=== PATIENT | male | born 1965 | race Caucasian/White ===

== ENCOUNTER 2025-02-08 12:36 | Inpatient (IN) | payer BC, SELFPAY ==
[2025-02-08] VITALS (36 sets, daily range): BP systolic 57–134; BP diastolic 37–85; BMI 30.4; BMI 30.3
[2025-02-08] MEDS: NSS 1000 IV ×4 (10:18→22:26)
--- NOTE | 2025-02-08 10:21 | EDRN ---
Critical care note: setting up for cardioversion. Pt has been on handsfree since arrival. Hypotensive, clammy, short of breath .
--- NOTE | 2025-02-08 10:26 | EDRN ---
Dr Newman: 1 mg versed. Synced cardioversion 200J cardioverted. Sinus sarah 55. ECG.
[2025-02-08 10:46] LABS: % Basophils 1.6 % (0-2); % Eosinophils 1.1 % (0-6); % Immature Granulocytes 0.3 % (0-0.5); % Lymphocytes 25.4 % (20.5-51.1); % Monocytes 7.6 % (1.7-9.3); Absolute Basophils 0.1 10^3/uL (0-0.2); Absolute Eosinophils 0.1 10^3/uL (0-0.7); Absolute Lymphocytes 1.9 10^3/uL (1.2-3.4); Absolute Monocytes 0.6 10^3/uL (0.1-0.6); Absolute Neutrophils 4.8 10^3/uL (1.4-6.5); Hemoglobin 13.2 g/dL (13.0-18.0); Mean Corp Hgb Conc. 34.7 g/dL (33.0-37.0); Mean Corpuscular Hgb 29.5 pg (27.0-31.0); Mean Corpuscular Volume 84.8 fL (80.0-94.0); Nucleated Red Blood Cells % 0 % (-); Platelet Count 188 10^3/uL (130-400); Red Blood Cell Count 4.48 10^6/uL (4.70-6.10); Red Cell Dist. Width 12.2 % (11.5-14.5); White Blood Cell Count 7.4 10^3/uL (4.8-10.8)
[2025-02-08 10:56] LABS: INR 1.22; PT 15.7 Sec (11.4-14.6)
[2025-02-08 10:57] LABS: APTT 36.1 Sec (23.4-35.0)
[2025-02-08] MEDS: LEVOPHED 250 IV (11:11)
[2025-02-08 11:17] LABS: ALT (SGPT) 40 U/L (0-50); AST (SGOT) 27 U/L (17-59); Albumin 3.5 g/dl (3.5-5.0); Alkaline Phosphatase 41 U/L (38-126); Blood Urea Nitrogen 20 mg/dl (9-20); Calcium 8.2 mg/dl (8.4-10.2); Carbon Dioxide 22 mmol/L (22-30); Chloride 111 mmol/L (98-107); Estimated Creatinine Clearance 97 ml/min; Glucose 150 mg/dl (70-99); Potassium 4.7 mmol/L (3.5-5.1); Sodium 138 mmol/L (135-145); Total Bilirubin 1.2 mg/dl (0.2-1.3); Total Protein 5.8 g/dl (6.3-8.2); eGFR > 60.00
--- NOTE | 2025-02-08 11:19 | ED.GENMED ---
History of Present Illness
General
Chief Complaint: Cardiac Symptoms
Source: patient and ambulance crew
Exam Limitations: none
Time Seen by Provider: 02/08/25 10:44
Nursing documentation reviewed up to this point in time: agreed with
History of Present Illness
History of Present Illness:
Patient diagnosed in October 2024 with new onset atrial fibrillation, currently on Eliquis, presents to ED secondary to persistent dizziness, chest pressure, shortness of breath, and blurred vision, upon waking up this morning around 6:30 AM. After
initial set of symptoms, patient states that his symptoms resolved completely. However, when he went to restroom shortly after to brush his teeth, his symptoms came back, but more severe. Secondary symptoms, including near syncope with
diaphoresis, 911 was dispatched to patient's home, where he was found to be in severe distress with hypotension and ongoing chest pain. Patient was given aspirin and IV fluids en route to the hospital. Upon arrival, patient was found to be
hypotensive and tachycardic with aforementioned symptoms. Patient denies recent illness. Patient does admit to having had couple alcoholic drinks last night. Denies recent travel. Denies recent change in medications or diet. When he was
admitted at [facility] in October, patient states that his rhythm converted on his own with medications. Since then, he has received outpatient stress test, which was normal. There is family history of heart disease. Patient does not smoke.
Past History
Past History
ED Past Medical History: None
ED Past Surgical History: None
Social History
Tobacco: Non-smoker
Alcohol: None
Drug: None
Personal:
Living: with family
Review of Systems
Review of Systems
Allergies reviewed?: Yes
All Other Systems: ROS reviewed and negative except as documented in HPI and ROS
Constitutional: Reports no symptoms
Respiratory: Reports trouble breathing
Cardiac: Reports chest pain
ABD/GI: Reports nausea; Denies abdominal pain or vomiting
Musculoskeletal: Reports no symptoms
Skin: Reports no symptoms
Neurological: Reports dizzy
Phy Exam
Physical Exam
Physical Exam:
Physical Exam
General: moderate distress, acutely ill. afebrile. tachycardic
Head: nc/at. eomi
Neck: supple. no meningeal signs
Heart: tachycardic, no murmur
Lungs: no acute respiratory distress. clear bilaterally
Abdomen: normal bowel sounds. not tender.
Neuro: alert and oriented x 3. no focal neurological deficits
Skin: no rash
Psychiatric: well kept. interactive and cooperative
Extremities: no edema. no calf tenderness
Course
Orders/Labs/Results
Orders:
Orders
02/08/25 Lunch
Cholesterol Lowering
At Your Request: Full Participation
Cholesterol Lowering: Sodium, 2 Gram
02/08/25 10:10
ECG [Electrocardiogram (*1)] Urgent
Reason for Study: Chest Pain
02/08/25 10:11
EKG- Treatment ONCE
02/08/25 10:19
Propofol [Diprivan] 20 ml .ROUTE .STK-MED
02/08/25 10:20
Diltiazem 125 mg/125 ml Nss [Cardizem] 125 mg in 125 ml .ROUTE .STK-MED
Diltiazem HCl [Cardizem] 25 mg .ROUTE .STK-MED ONE
Midazolam HCl [Versed] 2 mg .ROUTE .STK-MED ONE
02/08/25 10:21
Fentanyl Citrate/Pf [Sublimaze] 100 mcg .ROUTE .STK-MED ONE
02/08/25 10:28
ECG [Electrocardiogram (*1)] Urgent
Reason for Study: Abnormal EKG
EKG- Treatment ONCE
02/08/25 10:30
0.9% Sodium Chloride 1000 ml [Nss] 1,000 ml IV 2,000 mls/hr
02/08/25 10:40
Complete Blood Count/With Diff Urgent
Comprehensive Metabolic Panel Urgent
NT-proBNP Urgent
Comment: ADD ON
PT/INR [Prothrombin Time] Urgent
PTT Urgent
Troponin I Urgent
02/08/25 10:55
CR Chest Portable - 1 View Urgent
Comment:
Reason For Exam: chest pain
Reason Study Needs to be Portable: Patient Unstable
02/08/25 11:00
DOPamine 400 MG/D5W 250 ML [DOPamine 400 MG] 400 mg in 250 ml IV PER PROTOCOL
Initial dose in mcg/kg/min, then titrate:: 5
Titrate to keep:: SBP > 90 mmHg
Titrate by mcg/kg/min:: 1-2 mcg/kg/min
Frequency of titrations (minutes):: 15
Maximum dose in ICU in mcg/kg/min:: 20
Maximum dose in IMU in mcg/kg/min:: 10
Begin to taper infusion when:: Remained at goal for 4hrs
Taper by mcg/kg/min:: 1-2 mcg/kg/min
Frequency of taper (minutes) if patient maintains goal:: 30
Taper to off?: Yes
If infusion off & no longer maintaining goal:: Contact Provider
02/08/25 11:06
NORepinephrine 4 MG/250 ML [Levophed] 4 mg in 250 ml .ROUTE .STK-MED
02/08/25 11:07
0.9% Sodium Chloride 1000 ml [Nss] 1,000 ml IV BOLUS
02/08/25 11:15
NORepinephrine 4 MG/250 ML [Levophed] 4 mg in 250 ml IV PER PROTOCOL
Initial dose in mcg/min, then titrate:: 5
Titrate to keep:: SBP > 90 mmHg
Titrate by mcg/min:: 1-2 mcg/min
Frequency of titrations (minutes):: 5
Maximum dose in ICU in mcg/min:: 30
Maximum dose in IMU in mcg/min:: 8
Maximum dose in IVU in mcg/min:: 4
Begin to taper infusion when:: Remained at goal for 4hrs
Taper by mcg/min:: 1-2 mcg/min
Frequency of taper (minutes) if patient maintains goal:: 30
Taper to off?: Yes
If infusion off & no longer maintaining goal:: Contact Provider
02/08/25 11:17
Add On- LAB Urgent
Tests Added?: ProBNP, magnesium
02/08/25 11:33
COVID-19 Antigen Urgent
Source: Nasal Swab
Lactic Acid Q4H
Comment: CANCEL 2nd LACTIC ACID IF 1st LACTIC ACID IS LESS THAN 2
Blood Culture Q30M
EVGENY Source: Blood/Venous
Specimen Description:
Blood Culture Q30M
EVGENY Source: Blood/Venous
Specimen Description:
Influenza A+B Rapid Molecular Urgent
EVGENY Source: Nasal Swab
Specimen Description:
02/08/25 12:04
Code Status As Directed
Resuscitation Status: Full Code
Docusate W/Senna [Senokot-S] 1 tablet PO BIDPRN PRN
Polyethylene Glycol Powder [Miralax] 17 grams PO DAILYPRN PRN
Activity As Directed
Activity Level: As Tolerated
Vital Signs As Directed
Frequency: Per unit guidelines
02/08/25 12:06
Admit/Transfer Patient As Directed
Co-Sign Provider:
Level of Care: Inpatient admission
Assign to:: ICU
Physician / Group: Hospitialist: Aristides
Diagnosis: A-fib with RVR, cardiogenic shock
Reason for Hospitalization: A-fib with RVR, cardiogenic shock
Expected length of stay greater than two midnights?: Yes
ELOS- Estimated Length of Stay in days: 2
I certify the patient meets the requirements for IP care: Yes
PRN Pain Medication Management As Directed
May give lesser potent ordered pain med per pt: Yes
preference::
Protocol:: Medication orders for pain may be administered in a
manner that supports deferring to patient preference
when the pt is:
- Requesting an ordered lesser potent pain medication.
Least to most potent pain medications are defined
as: acetaminophen < NSAID < tramadol < opioids
(morphine, oxycodone, hydromorphone).
- Requesting a lesser dose of the same medication IF
ORDERED.
- Requesting a less intrusive route of administration
if both routes are prescribed by the provider (PO <
IV).
02/08/25 12:08
Echo 2D MMode Color/Doppler Stat
Reason for Study: hypotension
02/08/25 12:09
CARDIOLOGY CONSULT Routine
Consulting Provider: Elliot Romero
Was physician already notified: Yes
Reason for consult: afib RVR w hypotension
02/08/25 12:10
Online Publisher Consult Routine
Consulting Provider: Rhonda Powell
Was physician already notified: Yes
Reason for consult: requiring vasopressors after electrical cardioversion
02/08/25 12:15
0.9% Sodium Chloride 1000 ml [Nss] 1,000 ml IV 100 mls/hr
02/08/25 13:32
Alprazolam [Xanax] 1 mg PO BIDPRN PRN anxiety
02/08/25 18:00
Rosuvastatin Calcium [Crestor] 5 mg PO QPM
02/08/25 20:00
Apixaban [Eliquis] 5 mg PO BID
Metoprolol [Lopressor] 50 mg PO BID
02/09/25 06:00
Basic Metabolic Panel IN AM
Complete Blood Count/With Diff IN AM
Magnesium IN AM
Phosphorus IN AM
Abnormal Lab Results
02/08/25
10:40
RBC 4.48 L 10^6/uL
(4.70-6.10)
Hct 38.0 L %
(39.0-52.0)
PT 15.7 H Sec
(11.4-14.6)
APTT 36.1 H Sec
(23.4-35.0)
Chloride 111 H mmol/L
(98-107)
Glucose 150 H mg/dl
(70-99)
Calcium 8.2 L mg/dl
(8.4-10.2)
Total Protein 5.8 L g/dl
(6.3-8.2)
02/08/25 10:40
02/08/25 10:40
Vital Signs
Initial and Last Documented VS:
Initial Vital Signs
Temp Pulse Resp BP Pulse Ox
96.8 F L 163 20 57/37 90
02/08/25 10:10 02/08/25 10:10 02/08/25 10:10 02/08/25 10:10 02/08/25 10:10
Last Documented Vital Signs
Temp Pulse Resp BP Pulse Ox
98.2 F 78 16 131/71 100
02/08/25 15:23 02/08/25 17:30 02/08/25 17:30 02/08/25 17:19 02/08/25 17:38
MDM/Problems Addressed
MDM/Problems Addressed:
Patient evaluated immediately upon arrival. Initial EKG confirms nonspecific tachycardia, narrow complex. Patient started on additional IV fluids to support blood pressure. Unfortunately, after receiving approximately 800 mL normal saline bolus,
patient remains symptomatic with worsening hypotension. As such, after verbal discussion and consent, decision made to perform emergent cardioversion. Patient given 1 mg Versed prior to cardioversion with 200 J, with successful conversion of
initial tachycardia. Repeat EKG reveals sinus bradycardia, without any acute ST changes. In addition, patient states that all of his aforementioned presenting symptoms have resolved.
Blood pressure remains low and decreasing after initial improvement. As such, additional IV fluid ordered along with pressor support via Levophed infusion.
Discussed with on-call cardiology, Dr. Romero, who agrees with treatment plan. 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 Does recommend further workup including potential infectious etiology, due to persistent hypotension.
Patient will be admitted to ICU tonight for further evaluation and treatment.
Critical care statement: A total of 40 minutes of critical care time was provided for this patient. This includes management of unstable vital signs, evaluation of the patient at bedside, reviewing the patient's pertinent medical records, discussion
with consultants, review of old EKGs and review of pertinent medical records. This time with separate from time utilized to perform the aforementioned documented procedures
*Pulse Oximetry
SaO2: 100
Nasal Cannula flow liters per minute: 2
Oxygen Mode of Delivery: Room air
Patient hypoxic: no
*Critical Care Note
Total Time (30-74mins, 75-104mins- exclusive of procedures): 40 min
ED Attending Note
-
Portions of this chart may have been created with voice recognition software.� Occasional wrong word or��sound alike� substitutions may have occurred due to the inherent limitations of voice recognition software.
Discharge Plan
Departure
Patient Disposition: Admit
Date of Disposition: 02/08/25
Time of Disposition: 11:26
Admit to: ICU
Presentation/result/management discussed w/ accepting MD/DO: Hospitalist
Discharge Problem:
Chest pain, Tachycardia
Interventions
Interventions:
*Risk Screen - Suicide Last Done: 02/08/25 15:16
*General Assessment Last Done: 02/08/25 10:46
*Neglect/Abuse Screening Last Done: 02/08/25 10:49
*ED- Fall Risk Assessment Last Done: 02/08/25 12:13
*ED COVID-19 Vaccine History Last Done: 02/08/25 12:13
*Nursing Disposition Last Done: 02/08/25 13:49
ED- Pulmonary Assessment Last Done: 02/08/25 10:40
ED- Cardiac Assessment Last Done: 02/08/25 10:40
Discharge Date and Time
Discharge Date/Time: 02/08/25 13:50
[2025-02-08 11:28] LABS: Troponin I < 0.012 ng/ml
[2025-02-08] MEDS: NSS IV (11:28)
[2025-02-08 11:42] LABS: NT-proBNP 811 pg/ml
--- NOTE | 2025-02-08 11:59 | CM ---
Patient seen at bedside with patient in ED. Patient lives with in 2 story home. Patient PCP is Dr. Raphael and he uses the [facility] on [address] in [place]. Patient was independent prior to admission, and had no DME per spouse. CM will
continue to follow for discharge planning needs.
Plan; home with no needs; watch for medical treatment plan
[2025-02-08 12:00] LABS: Lactic Acid 1.2 mmol/L (0.7-2.0)
[2025-02-08 12:12] LABS: COVID-19 Antigen Negative (Negative)
--- NOTE | 2025-02-08 12:12 | HPS.HSE ---
Family Physician
-
Family Physician: Rickie Alicia
Chief Complaint
-
Chest pain, shortness of breath
History of Present Illness
Mr. Tuttle is a 60-year-old male with a medical history of recent A-fib diagnosis (October 2024, started on Eliquis and Lopressor) who presented from home with chest pain dizziness and shortness of breath. His symptoms were present when he first
woke up around 6:30 AM but resolved spontaneously. However his symptoms then returned more severely when he was ambulating to the bathroom. He was brought to the emergency department by EMS who reportedly found him at home in severe distress with
hypotension and chest pain. He was given aspirin and IV fluids on the way to the hospital. He remained tachycardic in the ED and was subsequently electrically cardioverted with return to normal sinus rhythm and controlled heart rate. His
hypotension has persisted however and so he was started on vasopressors. His presenting symptoms have since resolved after cardioversion. Patient reports a busy and slightly stressful weekend which may have been the trigger for his presenting
symptoms. This weekend the patient and his hosted a patient liaison honoring a family member. Last evening he reports having 2 alcoholic drinks while watching the [employer] lose to the [employer]. He has been adherent with his medication
regimen and denies recent illness or sick contacts. He does not smoke or use drugs. He has been admitted for further evaluation management.
Medical History
Past Medical History
Past Medical History: Reports Arrhythmia (A-fib)
Past Surgical History: Reports None
Social History
Tobacco: Non-smoker
Alcohol: Occasional
Drug: None
Personal:
Living: With Family
Family History
Family History: Not pertinent
Allergies / Home Medications
Allergies reflects when Allergies were last updated in [facility].
Home Medications with original date entered in [facility]
Allergy/Medication List:
Allergies
Allergy/AdvReac Type Severity Reaction Status Date / Time
NKA - No Known Allergies Allergy Unknown Uncoded 10/23/11 20:20
Home Medications
alprazolam 1 mg tablet (Xanax) 1 mg PO BIDPRN PRN anxiety 02/08/25
apixaban 5 mg tablet (Eliquis) 5 mg PO BID 02/08/25
metoprolol tartrate 50 mg tablet 50 mg PO BID 02/08/25
ramipril 10 mg capsule 10 mg PO DAILY 02/08/25
rosuvastatin 5 mg tablet (Crestor) 5 mg PO QPM 02/08/25
Review of Systems
-
History Source: Patient
A 12 point ROS was completed and negative except as noted: Yes
Physical Exam
Vital Signs
Vital Signs
Temp Pulse Resp BP Pulse Ox
96.8 F L 54 15 103/72 99
02/08/25 10:10 02/08/25 12:00 02/08/25 12:00 02/08/25 11:50 02/08/25 12:00
Physical Exam
General: No Apparent Distress
Laboratory Results
-
02/08/25 10:40
02/08/25 10:40
Laboratory Results
PT 15.7 Sec (11.4-14.6) H 02/08/25 10:40
INR 1.22 02/08/25 10:40
APTT 36.1 Sec (23.4-35.0) H 02/08/25 10:40
Lactic Acid 1.2 mmol/L (0.7-2.0) 02/08/25 11:33
Total Bilirubin 1.2 mg/dl (0.2-1.3) 02/08/25 10:40
AST 27 U/L (17-59) 02/08/25 10:40
ALT 40 U/L (0-50) 02/08/25 10:40
Alkaline Phosphatase 41 U/L (38-126) 02/08/25 10:40
Troponin I < 0.012 ng/ml 02/08/25 10:40
Impression/Plan
-
General: No Apparent Distress, Comfortable and Conversant
HEENT: NormoCephalic, Moist mucous membranes, Atraumatic
Respiratory: Clear and Non Labored Respirations
Cardiac: S1/S2 and Regular Rhythm; No Rub or Gallop
GI: Soft, Non Tender, Non Distended and Normal Bowel Sounds
Musculoskeletal: No Edema, no deformity
Skin: Warm and dry
: NO Yoder
Neuro: Awake, Alert, Nonfocal/grossly intact
Psych: Calm and Intact Judgment/Insight
Mr. Tuttle is a 60-year-old male with a medical history of recent A-fib diagnosis (October 2024, started on Eliquis and Lopressor) who presented from home with chest pain dizziness and shortness of breath. His symptoms were present when he first
woke up around 6:30 AM but resolved spontaneously. However his symptoms then returned more severely when he was ambulating to the bathroom. He was brought to the emergency department by EMS who reportedly found him at home in severe distress with
hypotension and chest pain. He was given aspirin and IV fluids on the way to the hospital. He remained tachycardic in the ED and was subsequently electrically cardioverted with return to normal sinus rhythm and controlled heart rate. His
hypotension has persisted however and so he was started on vasopressors. His presenting symptoms have since resolved after cardioversion. Patient reports a busy and slightly stressful weekend which may have been the trigger for his presenting
symptoms. This weekend the patient and his hosted a patient liaison honoring a family member. Last evening he reports having 2 alcoholic drinks while watching the [employer] [place] to [employer]. He has been adherent with his medication
regimen and denies recent illness or sick contacts. He does not smoke or use drugs. Recent ischemic workup following A-fib diagnosis was reportedly negative. He has been admitted for further evaluation management.
A-fib with RVR:
- Now in normal sinus rhythm with controlled rate following electrical cardioversion in the ED
- Continue scheduled beta-monica with home metoprolol tartrate 50 mg p.o. twice daily for ongoing rate control
- Check echocardiogram
- Maintain telemetry monitoring
- Anticoagulation with Eliquis
- Appreciate further guidance from cardiology
- No metabolic abnormalities on labs to explain this episode
Cardiogenic shock:
- Presenting hypotension in the setting of A-fib with RVR was likely rate related
- Now with persistent hypotension despite controlled rate, however may be due to residual effect of sedation given prior to electrical cardioversion
- Continue vasopressors for now and titrate as able
- Monitor in the ICU
- Holding home ramipril for now
DVT prophylaxis: Eliquis
CODE STATUS: Full code
Total time spent on today's encounter was 60 minutes
--- NOTE | 2025-02-08 13:38 | CON.CAR ---
Consultation
Consultation Request
Date/Time Consultation Requested: February 08, 2025 11 AM
Date/Time Consultation Performed: February 08, 2025 1 PM
Requesting Provider: Emergency room
Performing Provider: Elliot Romero
Reason for Consultation: SVT hypotension
Medical History
-
Chief Complaint: Dizziness
History of Present Illness:
60-year-old male with past medical history of A-fib on Eliquis and metoprolol who comes in with chest pain dizziness and lightheadedness. He tells me his symptoms started approximately when he woke up. They resolved spontaneously however, they
returned and were more severe. He also had some shortness of breath. He is accompanied by his who provides some interval history. She tells me that he was feeling very off and did not look well. She then called EMS. When EMS arrived he was
found to be hypotensive and having chest pain. Additionally, he had SVT with heart rates approximately 160. When he arrived in the emergency room he was hypotensive and then cardioverted. He has received significant amount of IV fluid remained
hypotensive and was started on Levophed. His symptoms have resolved when his hypotension resolved. He denies any fevers or chills.
Past Medical History
Past Medical History: Other (A-fib hypertension dyslipidemia)
Past Surgical History: None
Social History
Tobacco: Non-Smoker
Alcohol: Occasional
Drug: None
Personal:
Living: With Family
Family History
Family History: Reviewed & Not Pertinent
Allergies / Home Medications
Allergy/AdvReac Type Severity Reaction Status Date / Time
NKA - No Known Allergies Allergy Unknown Uncoded 10/23/11 20:20
�Medication �Instructions �Recorded �Confirmed �Type
alprazolam 1 mg tablet (Xanax) 1 mg PO BIDPRN PRN anxiety 02/08/25 02/08/25 History
apixaban 5 mg tablet (Eliquis) 5 mg PO BID 02/08/25 02/08/25 History
metoprolol tartrate 50 mg tablet 50 mg PO BID 02/08/25 02/08/25 History
ramipril 10 mg capsule 10 mg PO DAILY 02/08/25 02/08/25 History
rosuvastatin 5 mg tablet (Crestor) 5 mg PO QPM 02/08/25 02/08/25 History
Review of Systems
-
All other systems: Negative unless noted
Physical Exam
Vital Signs
Temp Pulse Resp BP Pulse Ox
96.8 F L 54 15 108/71 100
02/08/25 10:10 02/08/25 13:00 02/08/25 13:00 02/08/25 13:00 02/08/25 13:00
Lab Results
02/08/25 10:40
02/08/25 10:40
Troponin I < 0.012 ng/ml 02/08/25 10:40
[id number]-M-[id number] Pept 811 pg/ml 02/08/25 10:40
Physical Exam
General: Well Developed, Well Nourished and No Apparent Distress
HEENT: Normocephalic and Anicteric
Respiratory: Clear and Non Labored Respirations
Cardiac: S1/S2 and Regular Rhythm
GI: Soft
Musculoskeletal: No Clubbing, No Cyanosis and No Edema
Skin: Warm
Neuro: AO x 3
Psych: Calm
Impression / Plan
-
A/P: 60-year-old male with past medical history of hypertension, hyperlipidemia, recent diagnosis of A-fib on Eliquis who is here for SVT and hypotension. It is unclear to me why he was persistently hypotensive even after cardioversion. He did
take his blood pressure medicines. I am hopeful that this is transient and they will be able to titrate off the inotropes this afternoon. Otherwise, it is likely that his chest pain, shortness of breath, and dizziness were caused by profound
hypotension as well as tachycardia.
SVT/A-fib
- Continue Eliza will discuss with EP about possible ablation
- Continue metoprolol when off inotropes
Chest pain
- Troponin likely to be elevated given hypotension and cardioversion
- Reportedly normal stress test just a couple months ago
- Will discuss with interventional cardiology about possible cath in future
Hypotension
- Currently on inotropes unclear as cause echocardiogram shows normal heart function
- Rule out infection
Echocardiogram February 08, 2025: CONCLUSIONS
Normal biventricular size and systolic function without regional wall motion
abnormality.
LVEF is 60-65% by visual estimation. Normal diastolic function.
Normal right ventricular size and function.
No significant valvular disease.
Estimated pulmonary artery pressure of 27 mmHg, assuming a right atrial
pressure of 3 mmHg.
Sinuses of Valsalva (4.2 cm) dilatation.
No prior study available for comparison.
Data Reviewed
-
EKG: Tracing Personally Visualized and interpreted (svt sr)
Medical Tests (Nuc Med, Echo etc): Image Personally Visualized and interpreted
Labs: Labs Reviewed by me
--- NOTE | 2025-02-08 13:53 | CM ---
Patient seen at bedside in 2 south. CM spoke with Kelly from [facility], All documentation in place, awaiting confirmation of acceptance by HD center at [place]. CM to start auth pending receipt of the NPI numbers for facility and accepting
physician. CM will call to patient daughter to update plan. CM will continue to follow for discharge planning needs.
Plan; SNF;
[2025-02-08 13:56] LABS: Glucose - Point of Care 105 mg/dl (70-99)
--- NOTE | 2025-02-08 14:08 | CON.INTV ---
Consultation
Consultation Request
Date/Time Consultation Requested: 02/08/2025
Date/Time Consultation Performed: 02/08/2025
Requesting Provider: Matty Irving
Performing Provider: Rhonda Powell
Reason for Consultation: Hypotension
Medical History
-
Chief Complaint: Dizziness, palpitations
History of Present Illness:
Patient is a very pleasant 60-year-old gentleman with known history of A-fib on chronic anticoagulation with Eliquis and rate controlled with metoprolol who presented to the emergency room with dizziness palpitations and some chest discomfort.
Patient's reports that at home when she checked his blood pressure his heart rate was noted to be too high to monitor and blood pressure was in systolic of 80s. Patient subsequently was brought to the emergency room where he was noted to be
tachycardiac and hemodynamically unstable which eventually prompted an electrical cardioversion following which he flipped into normal sinus rhythm with rather sinus bradycardia. Hypotension tend to persist after cardioversion and patient was given
2 L of fluids and also started on pressors. In view of hypotension and pressor need, patient was transferred to ICU and environmental analyst consultation was requested for further input.
During my evaluation, patient was chest pain-free, otherwise asymptomatic, no cough, no chest pressure, no pleuritic discomfort. He was in normal sinus rhythm with mild sinus bradycardia around heart rate of 54-56. Blood pressure was in 120s and
patient was being weaned off Levophed.
Past Medical History
Past Medical History: Reports Arrhythmia (A-fib)
Past Surgical History: Reports None
Social History
Tobacco: Non-smoker
Alcohol: Occasional
Drug: None
Personal:
Living: With Family
Family History
Family History: Not pertinent
Allergies / Home Medications
Allergies / Home Medications
Allergies
Allergy/AdvReac Type Severity Reaction Status Date / Time
NKA - No Known Allergies Allergy Unknown Uncoded 10/23/11 20:20
Home Medications
�Medication �Instructions �Recorded �Confirmed �Last Taken �Type
alprazolam 1 mg tablet (Xanax) 1 mg PO BIDPRN PRN anxiety 02/08/25 02/08/25 Unknown History
apixaban 5 mg tablet (Eliquis) 5 mg PO BID 02/08/25 02/08/25 02/08/25 History
metoprolol tartrate 50 mg tablet 50 mg PO BID 02/08/25 02/08/25 02/08/25 History
ramipril 10 mg capsule 10 mg PO DAILY 02/08/25 02/08/25 02/08/25 History
rosuvastatin 5 mg tablet (Crestor) 5 mg PO QPM 02/08/25 02/08/25 02/07/25 History
Review of Systems
-
Hematologic/Lymphatic: Other (All 14 systems reviewed and negative except as stated above in the history of present illness.)
Vitals / Labs / Diagnostic Testing
Vital Signs
Temp Pulse Resp BP Pulse Ox
96.8 F L 54 14 117/73 100
02/08/25 10:10 02/08/25 13:45 02/08/25 13:45 02/08/25 13:30 02/08/25 13:45
Lab Data
02/08/25 10:40
02/08/25 10:40
Laboratory Results
02/08/25
10:40
PT 15.7 H
INR 1.22
APTT 36.1 H
Microbiology
02/08/25 11:33 Nasal Swab Influenza Types A & B (YAEL) - Final
Negative for Influenza A & B, NAAT
Negative results must be combined with clinical observations
and patient history.
Nucleic Acid Amplification test (NAAT)performed on the
[employer] platform.
Diagnostic Testing:
Physical Exam
-
HEENT: Normocephalic
Cardiovascular: S1/S2
Respiratory: Clear and Non-Labored Respirations
GI: Soft and Non Distended
Neurology: Awake and Alert
Skin: Warm
General: Comfortable
Assessment
-
#1. Paroxysmal SVT/Atrial Fibrillation with RVR
- S/p emergent cardioversion in ED 02/08
- On Eliquis and resume Metoprolol once off Pressors
- Cardiology consult for possible ablation
- Post cardioversion, mild sinus bradycardia noted, currently heart rate in mid 50s. ? Underlying sick sinus syndrome
#2. Hypotension.
- Suspect related to RVR, sedation medications (Versed, Fentanyl), unclear if patient received Cardizem
- Pressors as needed to keep MAP > 65, wean as tolerated, currently off Levophed
- F/u blood cultures. ROS and CXR not suggestive if infectious etiology.
- Afebrile, normal WBC count, Normal Lactate 1.2, hold off antibiotics for now.
- ECHO reviewed, LVEF normal
- Resume metoprolol at a lower dose of 25 mg every 6 hours with withholding parameters
#3. Suspected sleep disordered breathing.
- High pretest probability of underlying sleep apnea
- Will arrange outpatient follow-up with pulmonary clinic for further evaluation
Discussed the plan with cardiology service
Critical Care time 65 mins -- The patient is admitted for acute critical illness for the treatment of vital organ failure and/or prevention of further life-threatening conditions. Total care includes time spent in review of history, physical exam,
medications, hemodynamic/ventilator parameters, laboratory data, imaging and discussion with house staff, pharmacy, respiratory therapy, bench worker hollow handle, and nursing.
Data:
CXR 01/2025:1. Mild to moderate cardiomegaly.
2. Mild interstitial cardiogenic pulmonary edema.
ECHO 01/2025: Normal biventricular size and systolic function without regional wall motion
abnormality.
LVEF is 60-65% by visual estimation. Normal diastolic function.
Normal right ventricular size and function.
No significant valvular disease.
Estimated pulmonary artery pressure of 27 mmHg, assuming a right atrial
pressure of 3 mmHg.
Sinuses of Valsalva (4.2 cm) dilatation.
No prior study available for comparison.
--- NOTE | 2025-02-08 15:28 | PTCARENOTE ---
Updated admission data. ICU orientation, follow up plan of cares, history and event review. Continue with follow up teaching. Continue updates with cardiology, manager personnel selection team now at bedside with patient and spouse. Continue ongoing assessment,
vital sign trends and overall evaluation. Critical care nursing in and out at bedside. IVF continue. Levophed off since arrival. CP free, denies sob or huang, patient remains sinus sarah to sinus rhythm at this assessment. Will follow up medications
with manager personnel selection and pharmacy.
[2025-02-08] MEDS: LOPRESSOR 25 MG PO (17:19)
[2025-02-08] MEDS: CRESTOR 5 MG PO (17:19)
--- NOTE | 2025-02-08 20:20 | PTCARENOTE ---
Assumed care of pt at 1900. Pt is A/O x4, pleasant and cooperative with care. No c/o pain. SB 50s on monitor, occasionally going into upper 40s for a couple of seconds (self-limiting), first degree AVB noted (NV 0.22). SpO2 98% on RA. Physical
assessment as documented in nursing shift assessment flowsheet. at bedside.
[2025-02-08] MEDS: ELIQUIS 5 MG PO (21:34)
[2025-02-08] MEDS: XANAX 1 MG PO (21:35)
[2025-02-08] MEDS: LOPRESSOR PO (22:30)
[2025-02-09] VITALS (17 sets, daily range): BP systolic 100–161; BP diastolic 61–90; BMI 30.4
--- NOTE | 2025-02-09 01:28 | PTCARENOTE ---
Midnight assessment unchanged. 2200 dose of Lopressor held due to HR being below ordered parameter, pt continues to be bradycardic, while asleep is sustaining in the 40s, BP/MAP are WNL.
[2025-02-09] MEDS: LOPRESSOR PO ×3 (03:52→16:39)
[2025-02-09 05:12] LABS: % Eosinophils 1.7 % (0-6); % Immature Granulocytes 0.2 % (0-0.5); % Lymphocytes 33.7 % (20.5-51.1); % Monocytes 8.3 % (1.7-9.3); % Neutrophils 55.1 % (42.2-75.2); Absolute Basophils 0.1 10^3/uL (0-0.2); Absolute Eosinophils 0.1 10^3/uL (0-0.7); Absolute Lymphocytes 2.1 10^3/uL (1.2-3.4); Absolute Monocytes 0.5 10^3/uL (0.1-0.6); Absolute Neutrophils 3.5 10^3/uL (1.4-6.5); Hematocrit 36.8 % (39.0-52.0); Hemoglobin 12.4 g/dL (13.0-18.0); Mean Corp Hgb Conc. 33.7 g/dL (33.0-37.0); Mean Platelet Volume 10.3 fL (7.4-10.4); Nucleated Red Blood Cells % 0 % (-); Platelet Count 155 10^3/uL (130-400); Red Blood Cell Count 4.28 10^6/uL (4.70-6.10); Red Cell Dist. Width 12.5 % (11.5-14.5); White Blood Cell Count 6.3 10^3/uL (4.8-10.8)
[2025-02-09 05:48] LABS: Blood Urea Nitrogen 11 mg/dl (9-20); Calcium 8.2 mg/dl (8.4-10.2); Carbon Dioxide 22 mmol/L (22-30); Chloride 116 mmol/L (98-107); Estimated Creatinine Clearance > 125 ml/min; Glucose 103 mg/dl (70-99); Phosphorus 3.2 mg/dl (2.5-4.5); Potassium 4.2 mmol/L (3.5-5.1); Sodium 142 mmol/L (135-145); eGFR > 60.00
--- NOTE | 2025-02-09 06:06 | PTCARENOTE ---
0400 assessment unchanged. Pt has been asleep most of the shift. 0400 Lopressor dose held due to bradycardia, still maintaining HR in 40s while asleep, 50s-60s while awake, asymptomatic and BP WNL.
[2025-02-09] MEDS: NSS 1000 IV (07:29)
[2025-02-09] MEDS: ELIQUIS 5 MG PO ×2 (07:30→20:11)
--- NOTE | 2025-02-09 07:43 | W.PN.INTV ---
Today's Communication / Plan
Recommendations
NOX study tonight to be performed on room air
Social work consulted to assist us getting CPAP upon discharge
Outpatient pulmonary/sleep office follow-up will be arranged
Continue beta-monica with holding parameters dose may benefit from long-acting formulation given his bradycardia (defer changes to cardiology)
May benefit from an EP study however should first start treatment for JAMES and possibly obtain a cardiac event monitor (i.e. Linq) after that to assess burden of AF before ablation considered
Patient is stable for downgrade out of ICU to IVU; Pulmonary service will continue to follow along.
Assessment
-
#1. Paroxysmal SVT/Atrial Fibrillation with RVR now in NSR s/p emergent DCCV in ER on 02/08
- Continue Eliquis and Metoprolol, holding for bradycardia
- Check TSH
- EP consulted for possible ablation
- Post cardioversion, mild sinus bradycardia noted, currently heart rate in mid upper 40s, low 50s. ?Underlying sick sinus syndrome
- He does carry a diagnosis of obstructive sleep apnea with regions HSAT performed through his cardiology office ([facility]) � per the , this showed mild JAMES however I will obtain medical records myself to review
- I suspect that his recurrent atrial fibrillation is due to uncontrolled moderate/severe JAMES and he would greatly benefit from starting CPAP with sleep given his loud snoring, excessive daytime sleepiness, and nonrestorative sleep.
- I will check an overnight oximetry this evening
- Social work consulted to help assist us getting CPAP upon discharge
#2. Hypotension - now resolved
- Suspect related to RVR, sedation medications (Versed, Fentanyl), unclear if patient received Cardizem
- Goal MAP>65
- BCx drawn 02/08/2025 has grown Staphylococcus epidermidis, likely a contaminant as other blood Cx bottles are all negative and he has normal WBC, is non-toxic appearing and afebrile
- CXR from 02/08/2025 not suggestive if infectious etiology.
- Afebrile, normal WBC count, Normal Lactate 1.2, hold off antibiotics for now.
- ECHO reviewed, LVEF normal with normal RV size/function and normal PASP at 27 mmHg
- Continue metoprolol with holding parameters given his bradycardia, may need to change to a long-acting formulation instead - defer to cardiology
#3. JAMES
- As stated above, he already has been tested positive for obstructive sleep apnea
- I will obtain medical records from his asphalt patcher to review his HSAT from November 2024
- NOX study tonight to be performed on room air
- Social work consulted to assist with us getting him CPAP upon discharge, has he would greatly benefit from CPAP usage with sleep given his recurrent A-fib
- Patient still has not seen a sleep medicine office for follow up - we will arrange outpatient follow up with us at [facility] for continued management
Discussed the plan with cardiology service and hospitalist.
Patient is stable for downgrade out of ICU to IVU; Pulmonary service will continue to follow along.
Data:
CXR 01/2025:1. Mild to moderate cardiomegaly.
2. Mild interstitial cardiogenic pulmonary edema.
ECHO 01/2025: Normal biventricular size and systolic function without regional wall motion
abnormality.
LVEF is 60-65% by visual estimation. Normal diastolic function.
Normal right ventricular size and function.
No significant valvular disease.
Estimated pulmonary artery pressure of 27 mmHg, assuming a right atrial
pressure of 3 mmHg.
Sinuses of Valsalva (4.2 cm) dilatation.
No prior study available for comparison.
Total time spent today was 61 minutes for this encounter. Time includes reviewing laboratory test/imaging results, reviewing pertinent medical records, obtaining and reviewing medical history, performing an appropriate exam, ordering medications,
tests and procedures. Time also includes documentation of this encounter, coordinating patient care and communicating with other healthcare professionals. Total time does not include separately billed tests performed on this date of service.
Subjective Dataa
Subjective Data
Date of Service:
Date of Service: February 09, 2025
Chief Complaint: Refrigerating Technician Follow Up
Subjective:
Patient seen and evaluated today at bedside. Afebrile overnight. Patient's , Adri, present at bedside and all questions were answered. Patient is currently saturating 98% on room air with heart rate 49 and BP 133/75. He feels well overall.
No chest pain, SOB, fevers chills.
Review of Systems
General: Other (Negative unless mentioned above)
Objective Data
Data Reviewed
Vital Signs / I&O / Oxygen:
Vital Signs
Temp Pulse Resp BP Pulse Ox
97.7 F 46 14 123/65 95
02/09/25 04:49 02/09/25 07:00 02/09/25 07:00 02/09/25 07:00 02/09/25 07:00
Intake and Output
02/08/25 02/09/25 02/10/25
06:59 06:59 06:59
Intake Total 2200 / 2800 600 / 600
Balance 2200 / 2800 600 / 600
SaO2 95
Nasal Cannula flow liters per 2
minute
Physical Exam
General: Respiratory Distress (negative), Comfortable, Chills (negative) and Sweats (negative)
HEENT: Normocephalic and Anicteric
Cardiovascular: S1-S2, Regular Rhythm and Peripheral Edema (negative)
Respiratory: Wheeze (negative), Crackles (negative), Rhonchi (negative) and Non-Labored Respirations
GI: Soft, Non Distended, Non Tender and Normal Bowel Sounds
Neurology: AO x 3 and Tremors (negative)
Skin: Warm, Dry, Cyanosis (negative) and Jaundice (negative)
Labs/Micro/Reports
Lab Data
02/09/25 04:56
02/09/25 04:56
Laboratory Results
02/08/25
10:40
PT 15.7 H
INR 1.22
APTT 36.1 H
Microbiology
02/08/25 11:33 Nasal Swab Influenza Types A & B (YAEL) - Final
Negative for Influenza A & B, NAAT
Negative results must be combined with clinical observations
and patient history.
Nucleic Acid Amplification test (NAAT)performed on the
[employer] platform.
--- NOTE | 2025-02-09 07:51 | W.PN.HOSP.TC ---
Today's Communication/Plan
-
Transfer out of ICU
Stop IV fluids
Hemoglobin A1c
Await cardiology input
Assessment / Plan
Assessment / Plan
Gen-AAOx3, NAD
HEENT-NC, AT, anicteric, clear oral mm
Neck-supple
CV-reg, no M, +S1/S2
Lungs-clear B/L
Abd-soft, NT, ND
Ext-no edema
Musculoskeletal-no cyanosis, clubbing
Skin-warm and dry
Neuro-grossly non-focal
Psych-calm, cooperative
Cardiogenic shock -resolved. Suspect trigger was SVT. Has received 5 L of IV fluid so far, will discontinue. Discussed with nursing.
Echocardiogram shows normal BiV size and function without regional wall motion abnormality. LVEF 60 to 65%, normal diastolic function. Normal RV size and function. No significant valvular disease.
SVT -converted to sinus rhythm after cardioversion in the emergency room 02/08. Metoprolol resumed at 25 mg every 6 hours with holding parameters. Last dose was yesterday at 5 PM.
Recommend strict alcohol abstinence, discussed with patient and that alcohol can trigger his arrhythmia.
Atrial fibrillation -likely paroxysmal. Recently diagnosed in October. Continue Eliquis.
Essential hypertension -hold ramipril for hypotension.
Hyperglycemia -rule out DM2. Check hemoglobin A1c.
Hyperlipidemia -rosuvastatin.
Obesity due to excess calories
Full code
Transfer out of ICU.
Updated at the bedside.
Anticipated Discharge: Within 24 hours
Subjective/Interval History
-
Date of Service: February 09, 2025
Patient seen and examined. No complaints.
Objective Data
-
Labs:
Laboratory Results
02/09/25
04:56
WBC 6.3
Hgb 12.4 L
Hct 36.8 L
Plt Count 155
Sodium 142
Potassium 4.2
Chloride 116 H
Carbon Dioxide 22
BUN 11
Creatinine 0.7
Glucose 103 H
Calcium 8.2 L
Vital Signs:
Vital Signs
Temp Pulse Resp BP Pulse Ox
97.7 F 46 14 123/65 97
02/09/25 04:49 02/09/25 07:00 02/09/25 07:00 02/09/25 07:00 02/09/25 07:43
I&O
02/08/25 02/09/25 02/10/25
06:59 06:59 06:59
Intake Total 2200 / 2800 600 / 600
Balance 2200 / 2800 600 / 600
Review of Systems
-
History Source: Patient
All other systems: Reviewed and negative
--- NOTE | 2025-02-09 08:29 | PTCARENOTE ---
Assumed care of pt at 0700. Pt is A/O x4, pleasant and cooperative with care. No c/o pain. SB 50s on monitor, occasionally going into upper 40s. SpO2 97% on RA. Physical assessment as documented in nursing shift assessment flowsheet. at
bedside. Plan of care discussed.
[2025-02-09 08:49] LABS: Glycohemoglobin (HgbA1c) 5.2 % (4.0-5.6)
--- NOTE | 2025-02-09 10:07 | CM ---
Addendum entered by Tasia Thompson 02/09/25 13:26:
Physician is exploring CPAP machine for sleep apnea and is trying to get records from recent sleep apnea test. CM requested nocturnal O2 study and will submit to [employer]; script placed on chart.
Original Note:
Patient seen at bedside with in ICU. Patient and indicated that they have no concerns at this time for discharge. Patient stated they were waiting for cardiology. CM will continue to follow for discharge planning needs.
Plan; home with no needs anticipated.
[2025-02-09 14:22] LABS: TSH Reflex To Free T4 2.88 uIU/ml (0.47-4.68)
--- NOTE | 2025-02-09 16:02 | PTCARENOTE ---
Pt showered without issue. remained pt's side for safety.
--- NOTE | 2025-02-09 16:12 | W.PN.CD ---
Today's Communication / Plan
-
- Metoprolol 50 mg BID
- Restart Ramipril at reduced dose of 2.5 mg QD (from 10 mg QD)
- Continue Eliquis.
- OK to transfer to IVU.
Impression / Plan
-
A/P: 60-year-old male with past medical history of hypertension, hyperlipidemia, recent diagnosis of A-fib on Eliquis who is here for SVT and hypotension. It is unclear to me why he was persistently hypotensive even after cardioversion. He did
take his blood pressure medicines. I am hopeful that this is transient and they will be able to titrate off the inotropes this afternoon. Otherwise, it is likely that his chest pain, shortness of breath, and dizziness were caused by profound
hypotension as well as tachycardia.
SVT/A-fib
- AF/AFL ablation discussed.
- Plan to treat JAMES with CPAP, abstain from alcohol
- Continue Metoprolol 50 mg BID and use additional dose prn
- Decrease Ramipril to 5 mg QD. Allow higher than normal baseline BP due to severe hypotension.
- Continue Eliquis
- Plan for outpatient consult about possible ablation
- BP is stable off the inotropes
- OK to transfer to IVU.
- If BP stays normal, likely can be discharged home tomorrow. If hypotensive overnight or recurrence of AF noted then will need emergent/Urgent AF/FL ablation
Chest pain
- Troponin likely to be elevated given hypotension and cardioversion
- Reportedly normal PET/CT stress test just a couple months ago
- Obtain records from [facility].
Hypotension
- related to SVT/AF
- ECHO showed mildly reduced LV systolic function on my review.
- Likely AF/tachycardia effect.
- Should recover completely
Echocardiogram February 08, 2025: CONCLUSIONS
Normal biventricular size and systolic function without regional wall motion
abnormality.
LVEF is 60-65% by visual estimation. Normal diastolic function.
Normal right ventricular size and function.
No significant valvular disease.
Estimated pulmonary artery pressure of 27 mmHg, assuming a right atrial
pressure of 3 mmHg.
Sinuses of Valsalva (4.2 cm) dilatation.
No prior study available for comparison.
Physical Exam
Vital Signs/Labs
Vital Signs
Temp Pulse Resp BP Pulse Ox
97.7 F 57 14 161/90 96
02/09/25 08:00 02/09/25 16:00 02/09/25 16:00 02/09/25 16:00 02/09/25 16:00
02/08/25 02/09/25 02/10/25
06:59 06:59 06:59
Actual Weight 101.7 kg
02/09/25 04:56
02/09/25 04:56
PT 15.7 Sec (11.4-14.6) H 02/08/25 10:40
INR 1.22 02/08/25 10:40
APTT 36.1 Sec (23.4-35.0) H 02/08/25 10:40
Magnesium 2.0 mg/dl (1.6-2.3) 02/09/25 04:56
02/08/25
10:40
[id number] Pept 811
LAB Results
02/08/25
10:40
Troponin I < 0.012
Physical Exam
Constitutional: No acute distress and Comfortable
EENT: Anicteric and Moist mucous membranes
Cardiovascular: Rhythm & rate is regular, Pedal edema is absent and JVD pressure is normal
Respiratory: Respiratory effort normal, Lungs clear to auscul., Wheeze Absent and Crackles Absent
GI: Soft, Non tender and Normal bowel sounds
Neuro/Psych: Alert, Oriented and AO x 3
Data Reviewed
-
Date of Service: February 09, 2025
Medical Decision Making: Reviewed Test Results, Test Interpretation and Review of Case with other Provider
EKG: Tracing Personally Visualized and interpreted
Echo: Report Reviewed by me
Medical Tests (PFT, Pathology etc): Image Personally Visualized and interpreted
Labs: Labs Reviewed by me
Old Records: Reviewed
Critical Care Time (in minutes): 35
[2025-02-09] MEDS: CRESTOR 5 MG PO (17:33)
[2025-02-09] MEDS: TOPROL XL 50 MG PO (20:11)
[2025-02-09] MEDS: XANAX 1 MG PO (21:01)
[2025-02-10] VITALS (7 sets, daily range): BP systolic 118–167; BP diastolic 63–89
[2025-02-10] MEDS: ALTACE 2.5 MG PO (07:46)
[2025-02-10] MEDS: ELIQUIS 5 MG PO (07:46)
--- NOTE | 2025-02-10 07:47 | W.PN.HOSP.TC ---
Today's Communication/Plan
-
Discharge
Assessment / Plan
Assessment / Plan
Gen-AAOx3, NAD
HEENT-NC, AT, anicteric, clear oral mm
Neck-supple
CV-reg, no M, +S1/S2
Lungs-clear B/L
Abd-soft, NT, ND
Ext-no edema
Musculoskeletal-no cyanosis, clubbing
Skin-warm and dry
Neuro-grossly non-focal
Psych-calm, cooperative
Cardiogenic shock -resolved. Suspect trigger was SVT. Shock resolved.
Echocardiogram shows normal BiV size and function without regional wall motion abnormality. LVEF 60 to 65%, normal diastolic function. Normal RV size and function. No significant valvular disease.
SVT -converted to sinus rhythm after cardioversion in the emergency room 02/08. Metoprolol resumed at 25 mg every 6 hours with holding parameters. Last dose was yesterday at 5 PM.
Recommend strict alcohol abstinence, discussed with patient and that alcohol can trigger his arrhythmia.
TSH 2.88.
Atrial fibrillation -likely paroxysmal. Recently diagnosed in October. Continue Eliquis.
Cardiology plans to follow-up as outpatient to discuss ablation.
JAMES -trending nocturnal pulse ox noted last night, lowest pulse ox was 88%. Will discuss with pulmonary about CPAP on discharge.
Essential hypertension -ramipril dose reduced to 2.5 mg daily. Discussed with patient and .
Hyperglycemia -hemoglobin A1c 5.2%.
Hyperlipidemia -rosuvastatin.
Obesity due to excess calories
Full code
Dispo -medically stable for discharge today. Will need outpatient follow-up with PCP, pulmonary, cardiology.
Updated at the bedside.
32 minutes spent in discharge process.
Anticipated Discharge: Today
Subjective/Interval History
-
Date of Service: February 10, 2025
Patient seen and examined. No complaints.
Objective Data
-
Vital Signs:
Vital Signs
Temp Pulse Resp BP Pulse Ox
97.9 F 46 11 142/86 97
02/10/25 06:53 02/10/25 05:00 02/10/25 05:00 02/10/25 04:22 02/10/25 05:00
I&O
02/09/25 02/10/25 02/11/25
06:59 06:59 06:59
Intake Total 2200 / 2800 700 / 700
Balance 2200 / 2800 700 / 700
Review of Systems
-
History Source: Patient
All other systems: Reviewed and negative
[2025-02-10] MEDS: TOPROL XL 50 MG PO (07:53)
--- NOTE | 2025-02-10 08:30 | W.PN.PUL3 ---
Today's Communication / Plan
-
Social work consulted to help get CPAP upon discharge
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 Shahbaz Cuevas through [facility]
Outpatient pulmonary/sleep office follow-up will be arranged through our office for continued JAMES management
Continue outpatient follow-up with cardiology; outpatient EP follow-up for A-fib/a flutter ablation in 3-4 weeks
Continue Eliquis + metoprolol
Continue ramipril upon discharge, with dose lowered to avoid hypotension
Patient is being prepared for discharge home. No additional recommendations at this time. Pulmonary service will now sign off. Please reconsult if there are any additional questions/concerns, or if patient's respiratory status deteriorates.
Assessment
-
#1. Paroxysmal SVT/Atrial Fibrillation with RVR now in NSR s/p emergent DCCV in ER on 02/08
- Continue Eliquis and Metoprolol, holding for bradycardia
- TSH WNL
- EP consulted for possible ablation - this will be arranged as an outpatient
- Post cardioversion, mild sinus bradycardia noted, currently heart rate in mid upper 40s, low 50s. ?Underlying sick sinus syndrome
- He does carry a diagnosis of obstructive sleep apnea with recent HSAT performed on 12/10/2024 through his cardiology office ([facility] - Dr. Shahbaz Cuevas) - this showed mild JAMES
- I suspect that his recurrent atrial fibrillation is due to uncontrolled moderate/severe JAMES and he would greatly benefit from starting CPAP with sleep given his loud snoring, excessive daytime sleepiness, and nonrestorative sleep.
- Overnight oximetry did not show significant hypoxia although aurora SaO2 was 88% but total accumulated time with SpO2 <89% was only 28 seconds; average SaO2: 96%
- Social work consulted to help assist us getting CPAP after discharge
#2. Hypotension - now resolved
- Suspect related to RVR, sedation medications (Versed, Fentanyl), unclear if patient received Cardizem
- Goal MAP>65
- BCx drawn 02/08/2025 has grown Staphylococcus epidermidis, likely a contaminant as other blood Cx bottles are all negative and he has normal WBC, is non-toxic appearing and afebrile
- CXR from 02/08/2025 not suggestive if infectious etiology.
- Afebrile, normal WBC count, normal Lactate 1.2, hold off antibiotics for now
- ECHO reviewed, LVEF normal with normal RV size/function and normal PASP at 27 mmHg
- Continue metoprolol with holding parameters given his bradycardia --> EP changed him to Toprol-XL 50 mg BID
#3. JAMES
- As stated above, he already has been tested positive for obstructive sleep apnea
- HSAT performed on 12/10/2024 showed overall AHI (4%): 7.9 with aurora SpO2: 88% with total time with oxygen saturation <89% of 0.1 minutes.
- Copy of HSAT in chart
- Social work consulted to assist with us getting him CPAP upon discharge, has he would greatly benefit from CPAP usage with sleep given his recurrent A-fib
- Patient still has not seen a sleep medicine office for follow up - we will arrange outpatient follow up with us at [facility] for continued management
Discussed the plan with cardiology service and hospitalist.
Patient is being prepared for discharge home. Outpatient pulmonary/sleep office follow-up will be arranged. No additional recommendations at this time. Pulmonary service will now sign off. Thank you for allowing us to be involved in the care of
this patient. Please reconsult if there are any additional questions/concerns, or if patient's respiratory status deteriorates.
Data:
CXR 01/2025:1. Mild to moderate cardiomegaly.
2. Mild interstitial cardiogenic pulmonary edema.
ECHO 01/2025: Normal biventricular size and systolic function without regional wall motion
abnormality.
LVEF is 60-65% by visual estimation. Normal diastolic function.
Normal right ventricular size and function.
No significant valvular disease.
Estimated pulmonary artery pressure of 27 mmHg, assuming a right atrial
pressure of 3 mmHg.
Sinuses of Valsalva (4.2 cm) dilatation.
No prior study available for comparison.
Total time spent today was 37 minutes for this encounter. Time includes reviewing laboratory test/imaging results, reviewing pertinent medical records, obtaining and reviewing medical history, performing an appropriate exam, ordering medications,
tests and procedures. Time also includes documentation of this encounter, coordinating patient care and communicating with other healthcare professionals. Total time does not include separately billed tests performed on this date of service.
Subjective Data
-
Date of Service:
Date of Service: February 10, 2025
Chief Complaint: Pulmonary Follow Up
Subjective:
Patient doing well. Remains in NSR. Currently breathing comfortably on room air, saturating 96%. Being prepared for discharge home today.
Review of Systems
General: Other (Negative unless mentioned above)
Objective Data
Data Reviewed
Vital Signs / I&O / Oxygen:
Vital Signs
Temp Pulse Resp BP Pulse Ox
97.9 F 54 11 156/88 96
02/10/25 06:53 02/10/25 07:47 02/10/25 07:47 02/10/25 07:47 02/10/25 08:00
Intake and Output
02/09/25 02/10/25 02/11/25
06:59 06:59 06:59
Intake Total 2200 / 2800 700 / 700
Balance 2200 / 2800 700 / 700
SaO2 96
Nasal Cannula flow liters per 2
minute
Physical Exam
General: Respiratory Distress (negative), Comfortable, Chills (negative) and Sweats (negative)
HEENT: Normocephalic and Anicteric
Cardiovascular: S1-S2, Regular Rhythm and Peripheral Edema (negative)
GI: Soft, Non Distended, Non Tender and Normal Bowel Sounds
Neurology: AO x 3 and Tremors (negative)
Skin: Warm, Dry, Cyanosis (negative) and Jaundice (negative)
Labs/Micro/Reports
Lab Data
02/09/25 04:56
06/23/25 04:56
Microbiology
02/08/25 11:33 Blood/Venous Blood Culture - Preliminary
Staphylococcus epidermidis
02/08/25 11:33 Blood/Venous Gram Stain - Preliminary
02/08/25 11:33 Blood/Venous Blood Culture - Preliminary
No Growth in 24 hours- Final report to follow
02/08/25 11:33 Nasal Swab Influenza Types A & B (YAEL) - Final
Negative for Influenza A & B, NAAT
Negative results must be combined with clinical observations
and patient history.
Nucleic Acid Amplification test (NAAT)performed on the
[employer] platform.
--- NOTE | 2025-02-10 09:21 | PTCARENOTE ---
pt received from previous rn- aox4, at bedside, both provided education and verbalized understanding. Dr. Cheng and Dr. Morales aware of pt being sb in 40s to nsr with 1st degree, ok to give all am meds. all safety precautions in place, pt
ambulates in room without difficulty, call boyce within reach
--- NOTE | 2025-02-10 09:21 | PTCARENOTE ---
pt received from previous rn- aox4, at bedside, both provided education and verbalized understanding. Dr. Cheng and Dr. Morales aware of pt being sb to nsr with 1st degree, ok to give all am meds. all safety precautions in place, pt ambulates
in room without difficulty, call boyce within reach
--- NOTE | 2025-02-10 09:51 | W.PN.CD ---
Today's Communication / Plan
-
- Discharge home on Ramipril 2.5 mg QD (Decreased from 10 mg home dose)
- Metoprolol 50 mg BID
- Eliquis 5 mg BID
- EP consult and AF/Flutter ablation in 3-4 weeks.
Impression / Plan
-
A/P: 60-year-old male with past medical history of hypertension, hyperlipidemia, recent diagnosis of A-fib on Eliquis who is here for AFib/ Flutter and hypotension.
SVT/A-fib
- AF/AFL ablation discussed.
- Plan to treat JAMES with CPAP, abstain from alcohol
- Continue Metoprolol 50 mg BID and use additional dose prn
- Decrease Ramipril to 2.5 mg QD. Allow higher than normal baseline BP due to severe hypotension.
- Continue Eliquis
- Plan for outpatient consult about possible ablation - scheduled for 03/11
- BP is stable - off the inotropes
- Stable for discharge.
Chest pain
- Troponin likely to be elevated given hypotension and cardioversion
- Reportedly normal PET/CT stress test just a couple months ago
- Records from [place] / [facility] - in the chart.
Hypotension
- related to SVT/AF
- ECHO showed mildly reduced LV systolic function on my review.
- Likely AF/tachycardia effect.
- Should recover completely
Echocardiogram February 08, 2025: CONCLUSIONS
Normal biventricular size and systolic function without regional wall motion
abnormality.
LVEF is 60-65% by visual estimation. Normal diastolic function.
Normal right ventricular size and function.
No significant valvular disease.
Estimated pulmonary artery pressure of 27 mmHg, assuming a right atrial
pressure of 3 mmHg.
Sinuses of Valsalva (4.2 cm) dilatation.
No prior study available for comparison.
Physical Exam
Vital Signs/Labs
Vital Signs
Temp Pulse Resp BP Pulse Ox
97.9 F 54 11 156/88 96
02/10/25 06:53 02/10/25 07:47 02/10/25 07:47 02/10/25 07:47 02/10/25 08:00
02/09/25 02/10/25 02/11/25
06:59 06:59 06:59
Actual Weight 101.7 kg 100.2 kg
02/09/25 04:56
02/09/25 04:56
PT 15.7 Sec (11.4-14.6) H 02/08/25 10:40
INR 1.22 02/08/25 10:40
APTT 36.1 Sec (23.4-35.0) H 02/08/25 10:40
Magnesium 2.0 mg/dl (1.6-2.3) 02/09/25 04:56
02/08/25
10:40
Jbi-K-Sgtytlcfonw Pept 811
LAB Results
02/08/25
10:40
Troponin I < 0.012
Physical Exam
Constitutional: No acute distress and Comfortable
EENT: Anicteric and Moist mucous membranes
Cardiovascular: Rhythm & rate is regular, Pedal edema is absent and JVD pressure is normal
Respiratory: Respiratory effort normal, Lungs clear to auscul. and Crackles Absent
GI: Soft, Non tender and Normal bowel sounds
Neuro/Psych: Alert, Oriented and AO x 3
Data Reviewed
-
Date of Service: February 10, 2025
Medical Decision Making: Reviewed Test Results, Test Interpretation and Review of Case with other Provider
EKG: Tracing Personally Visualized and interpreted
Echo: Report Reviewed by me
Medical Tests (PFT, Pathology etc): Image Personally Visualized and interpreted
Labs: Labs Reviewed by me
Old Records: Reviewed
--- NOTE | 2025-02-10 11:28 | W.DS.TRANS ---
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
-
Discharge Instructions:
Sleep Apnea Risk High
Discharge Diagnosis/Procedures Supraventricular tachycardia
Diet 2 Gram Sodium,Low Cholesterol,Low Fat
Activity As tolerated
Driving Restrictions As prior to admission
Bathing Restrictions None
Instructions:
Stand-Alone Forms:
Changes to Home Medications: Yes
Discharge Medications:
DC Medications w/original date entered in [employer]
alprazolam 1 mg tablet (Xanax) 1 mg PO BIDPRN PRN anxiety 02/08/25
apixaban 5 mg tablet (Eliquis) 5 mg PO BID Blood Clot Prevention/Tx 02/08/25
rosuvastatin 5 mg tablet (Crestor) 5 mg PO QPM High Cholesterol 02/08/25
metoprolol succinate 50 mg tablet,extended release 24 hr 50 mg PO BID #60 tabs 02/10/25
ramipril 2.5 mg capsule 2.5 mg PO DAILY #30 caps 02/10/25
Home Medication Changes
Ramipril dose reduced to 2.5 mg daily.
Pending Results: No
--- NOTE | 2025-02-10 12:35 | PTCARENOTE ---
Dr. Cheng and Dr. Morales aware of bp, no further orders. pt ordered to be discharged, instructions and education provided to and pt, both verbalized understanding. ivs removed, pressure dressings applied. see case management and md notes for
further details.
--- NOTE | 2025-02-10 12:55 | CM ---
Patient has been medically cleared for discharge to home with no additional skilled services. CPAP orders and medical documentation forwarded to Mariya at [facility]. Confirmed receipt. She has had contact with . to transport home.
== END 2025-02-10 12:48 | disposition home or self-care (01) | DRG 308 ==
LOC: ICU 12:36
PROVIDERS: ADMITTING PHYSICIAN Internal Medicine; ATTENDING PHYSICIAN Hospitalist; CONSULT PHYSICIAN Internal Medicine Cardiovascular Disease; EMERGENCY PHYSICIAN Emergency Medicine; FAMILY PHYSICIAN Family Medicine; OTHER PHYSICIAN Internal Medicine
PROC: 5A2204Z Restoration of Cardiac Rhythm, Single (ICD-10-PCS; 2025-02-08)
DX: I47.19 Other supraventricular tachycardia (principal); R57.0 Cardiogenic shock; I48.91 Unspecified atrial fibrillation; R42 Dizziness and giddiness; E78.5 Hyperlipidemia, unspecified; G47.33 Obstructive sleep apnea (adult) (pediatric); I10 Essential (primary) hypertension; R73.9 Hyperglycemia, unspecified; E66.09 Other obesity due to excess calories; H53.8 Other visual disturbances; Z79.01 Long term (current) use of anticoagulants; Z82.49 Family history of ischemic heart disease and other diseases of the circulatory system; Z11.52 Encounter for screening for COVID-19; Z68.30 Body mass index [BMI] 30.0-30.9, adult
CPT/HCPCS: 71045; 80048; 80053; 82962; 83036; 83605; 83735; 83880; 84100; 84443; 84484; 85025; 85610; 85730; 87040; 87154; 87205; 87502; 87811; 92960; 93005; 93306; 94762; 96361; 96374; 99291

== ENCOUNTER 2025-04-07 05:55 | Day surgery (SDC) | payer BC, SELFPAY ==
[2025-04-01 13:25] VITALS: BMI 30.5
[2025-04-01 14:04] LABS: Hematocrit 39.8 % (39.0-52.0); Hemoglobin 13.4 g/dL (13.0-18.0); Mean Corp Hgb Conc. 33.7 g/dL (33.0-37.0); Mean Corpuscular Volume 85.6 fL (80.0-94.0); Nucleated Red Blood Cells % 0 % (-); Platelet Count 187 10^3/uL (130-400); Red Cell Dist. Width 12.2 % (11.5-14.5)
[2025-04-01 14:09] LABS: ALT (SGPT) 47 U/L (0-50); AST (SGOT) 28 U/L (17-59); Albumin 4.8 g/dl (3.5-5.0); Alkaline Phosphatase 39 U/L (38-126); Blood Urea Nitrogen 14 mg/dl (9-20); Calcium 9.5 mg/dl (8.4-10.2); Carbon Dioxide 28 mmol/L (22-30); Chloride 106 mmol/L (98-107); Estimated Creatinine Clearance > 125 ml/min; Glucose 93 mg/dl (70-99); Potassium 4.4 mmol/L (3.5-5.1); Sodium 140 mmol/L (135-145); Total Protein 7.6 g/dl (6.3-8.2); eGFR > 60.00
[2025-04-07] VITALS (13 sets, daily range): BP systolic 114–174; BP diastolic 71–105
[2025-04-07 09:46] LABS: ACT-LR - POC 331 Seconds (116-155)
[2025-04-07 10:15] LABS: ACT-LR - POC > 397 Seconds (116-155)
--- NOTE | 2025-04-07 10:16 | ITS.CL.ABL ---
Grubber - Ablation
Ablation
Procedure Report:
AFIB / A flutter ablation:
Mr. Tuttle is a very pleasant 60 yr old gentleman with medical history significant for symptomatic paroxysmal atrial fibrillation and atrial flutters is here in the EP lab for atrial fibrillation / flutter ablation
Date of Procedure:
04/07/2025
Indications:
Symptomatic paroxysmal atrial fibrillation / atrial flutter
Pre-Operative Diagnosis:
Paroxysmal atrial fibrillation / atrial flutter
Post-Operative Diagnosis:
Paroxysmal atrial fibrillation / atrial flutter
Procedure Performed:
Atrial fibrillation ablation with wide area circumferential ablation (WACA) approach for pulmonary vein isolation
Posterior wall isolation
Atrial flutter ablation with cavo-tricuspid isthmus line block formation
Focal atrial tachycardia from raven terminalis ablation
Right atrial lateral wall flutter ablation
Performing Physician:
Melonie Cheng MD
Assistants:
EP staff
Anesthesia:
See anesthesia records
Detailed Description of the Procedure:
Written informed consent was obtained from the patient after a full explanation of the risks and benefits of the procedure including the risks of sedation and anesthesia.
The patient was brought to the electrophysiology laboratory in stable condition in fasting state. Continuous electrocardiographic and hemodynamic monitoring was initiated.
The initial rhythm was sinus bradycardia.
The procedure site was meticulously prepared with surgical scrub and allowed to dry with no pooling. Sterile draping was applied to cover the procedure site. The image intensifier was draped with sterile bag and positioned over the patient. After
infusion of local anesthetic, vascular access was obtained under ultrasound guidance and sheaths were placed over guide wire as detailed below.
The images of the ultrasound of the femoral vessels were stored in patient chart.
Sheath and Catheter Placement:
The following catheters / sheaths were placed
Sheaths:
��������� Agilis sheath in right femoral vein upgraded from 8Fr in right femoral vein
��������� 9Fr in left femoral vein
��������� 7Fr in right femoral vein
Catheters:
��������� The Affera Sphere 9 catheter -bidirectional D/F� - at locations of HRA, RV, LA and LV.
��������� ICE catheter -AccuNav -� at locations of RA, SVC, and RV.
��������� Bard decapolar catheter � RA and CS
Heparin was initiated after the access was obtained.
Intracardiac ECHO:
An 8-Guyanese AcuNav intracardiac ECHO (ICE) probe was advanced through the 9-Guyanese sheath in the left femoral vein into the right atrium under fluoroscopic and ICE ultrasound image guidance and a baseline ECHO study was performed. The left atrial
size was dilated. There was trace tricuspid regurgitation. The aortic valve was grossly normal. There was normal left ventricular size and function. There is no pericardial effusion. The BUCKY has baseline normal velocities. The pulmonary had good
flow identified.
During the procedure, ICE was used for monitoring of complications, guidance of trans-septal puncture, monitor the catheter position and tracking ablation lesions. No change in the pericardial space noted throughout the procedure.
Electroanatomic mapping of the right atrium:
A J-tipped guidewire was advanced through the 8-Guyanese sheath in the right femoral vein into the superior vena cava under fluoroscopic and ICE guidance. The 8-Guyanese sheath was exchanged for an Agilis sheath which was advanced into the superior vena
cava.
Using the Sphere 9 Affera catheter advanced through Agilis sheath into the right atrium, an electroanatomic map (EAM) of the right atrium was created using the [employer] mapping system with [employer]Leaf-1 software mapping system.
There was normal HV conduction noted at baseline at 45 ms.
Ablation # 1: Typical Atrial Flutter Ablation:
The flutter was mapped and was noted concentric in the CS. The RA was mapped in atrial flutter that showed typical counter clock laura CTI dependent atrial flutter.
The CTI ablation was done using radiofrequency with Affera sphere -9 ablation, open irrigation, force-sensing bidirectional ablation catheter in the cavotricuspid isthmus from the tricuspid annulus to the IVC ridge. �Once the ablation catheter reach
near the IVC, the ablation energy was changed to pulsefield.
��������������� -Bidirectional block was confirmed across the CTI line with differential pacing.
��������������� -Double potentials were spaced greater than 92 msec apart.
��������������� -The conduction time across the CTI line from proximal CS pacing was 178 msec.
��������������� -EAM of the right atrium was obtained with coronary sinus pacing and showed a line of block at the CTI.
��������������� -The time interval just lateral to the ablation lesions was 178 msec and the lateral wall was 112 msec
��������������� - All these maneuvers confirmed the block at the CTI line.
- Post ablation HV interval was unchanged at 45msec
Ablation # 2: Ablation of the focal atrial tachycardia:
Then patient had focal atrial tachycardia which was mapped coming from raven terminalis.
The earliest area was mapped that had significant fractionated signal and significant atrial ectopy associated with contact to the area even when atrial tachycardia dissipated spontaneously.
Using the pulsed field severe 9 ablation catheter, the ablation lesions were applied at the focal atrial tachycardia source.� The atrial ectopy subsided.� However, patient went into atrial flutter.
Ablation # 3: Right atrial lateral wall flutter ablation
The tachycardia was 240 ms cycle length and was mapped.� With CTI block, the flutter was noted to be concentric and coming from the right atrium.� With mapping, the atrial tachycardia was noted to be coming from the lateral wall of the right atrium.
�The circuit of the flutter was revolving around preablation scar on the lateral wall. �There was a scar in the lateral wall extending from the IVC to the base of the raven.
A series of ablations were placed from the IVC scar to the atrial scar. �The flutter terminated into normal sinus rhythm.
Then attention was given to atrial fibrillation ablation.
Trans-septal Puncture:
Heparin was initiated and infused to maintain appropriate ACT. A J-tipped guidewire was advanced through into the superior vena cava under fluoroscopic and ICE guidance. The Agilis sheath was advanced into the superior vena cava. A BRK transseptal
needle system was utilized to perform the trans-septal puncture. The apparatus was withdrawn until it was in contact with the fossa ovalis. The position was adjusted based on fluoroscopy and ultrasound images from ICE. Under fluoroscopic,
hemodynamic and ICE ultrasound guidance, left atrium was cannulated by advancing the needle. Once atrial septum was cannulated, the needle was pulled back and the guide wire was advanced through the needle into the left atrium. The guide wire was
advanced into the left superior pulmonary vein. Both the sheath and the dilator was advanced into the left atrium. The dilator with the needle was withdrawn. Blood was aspirated from the Agilis sheath and arterial blood confirmed. The sheath was
flushed. Saline injection noted into the left atrium on ICE. The waveform of the LA pressure was recorded. The mapping catheter was advanced in the Agilis sheath into the left pulmonary vein.
3D Electroanatomic Mapping:
Using the Sphere 9 Affera catheter advanced through Agilis sheath into the left atrium, an electroanatomic map (EAM) of the left atrium was created using [employer] mapping system with [employer] software. The map was used for localization of catheter
position and tacking of ablation lesions. The EAM of the left atrium showed a total of 4 PVs with two left and the two right sided pulmonary veins with all electrically connected to the body the LA. there was significant amount of scar noted around
the right-sided pulmonary veins.� There was a large scar in the posterior wall as well.� The LA was dilated in size.
Following the EAM, preparation were made for ablation.
Ablation:
Ablation # 4: Pulmonary vein Isolation:
Pulsed field ablation was performed using an open irrigation, bidirectional, contact sensing, dual energy ablation catheter (Affera sphere -9) by completing the circumferential lesions around the left and right pulmonary veins achieving pulmonary
vein isolation.
Confirmation of the PVI and bidirectional block:
Following achievement of entrance block at the pulmonary veins, pacing from the Sphere 9 affera catheter in each of the four veins at 20 milliamps for 4 milliseconds showed entrance and exit block.
The LA was mapped with The [employer] mapping system with TruLeaf-1 software in sinus rhythm confirming the line of block at the ablation lesions lines.
Ablation # 5: Posterior wall isolation with the Box lesions set Formation:
There was a clear channel of electrical activity left in the posterior wall with multiple CFAE and AF areas on the roof and ablation in that area increased the risk of atrial flutter and decision was made to create a roof line to block a slow
conduction. A set of pulsed field ablations were placed on the roof line connecting the left superior pulmonary vein ablation lesions to the right superior pulmonary vein lesions rings.
There was a significant fractionation seen in the posterior wall and LA AF foci along with CFAE made it clear as the posterior wall is critical in maintaining the atrial fibrillation and the decision was made to isolate the posterior wall by
creating a �Box� lesions.
A set of Pulsed field ablations were placed on the floor line connecting the left inferior pulmonary vein ablation lesions to the right inferior pulmonary vein lesions rings.
The sphere 9 in the posterior wall showed entrance block and the pacing from the posterior wall showed no exit from the box lesions confirming the exit block.
EP study:
Sinus Node Function: The sinus node functions are within acceptable normal range.
Atrioventricular Mary Ellen Function: �Post ablation HV interval was unchanged at 45 msec
Procedure End
ICE study was done again that showed no epicardial accumulation. No complications noted.
Following the completion of the EP study, catheters were removed. Protamine 40 mg was given at the end of the procedure and ACT was checked repeatedly. The sheaths were removed and hemostasis achieved with Fig of 8 suture and manual compression
after acceptable ACT is achieved.
Left atrial Pressure:
Pre-Procedure: Mean LA pressure was 10mmHg
Post-Procedure: Mean LA pressure was 13mmHg
Post-Procedure: Mean RA pressure was 8mmHg
Fluoro Time:
1.6min
Estimated Blood loss:
<10 cc
Specimens Removed:
None.
Implants / Devices:
None
Urine output:
None
Packs / Drains/ Tubes:
None
Instrument / Sponge Count Correct:
Yes
Complications of the Procedure:
None
Condition of Patient at Time of Transfer:
Hemodynamically stable with no neurological or vascular compromise.
Summary:
��������� Successful atrial fibrillation ablation with circumferential bidirectional line of block at pulmonary venin antra (Pulmonary vein isolation), left atrial posterior wall isolation, atrial flutter ablation with cavo-tricuspid isthmus line
block formation, focal raven atrial tachycardia ablation, right atria lateral wall flutter ablation.
Figures from the Procedure:
Figure 1: The electroanatomic mapping (EAM) of the left atrium with bipolar voltage (purple indicates normal electrical activity with red as no myocardial muscle electric activity indicating a line of block or scar.
RA - pre ablation
CTI
[2025-04-07] MEDS: TYLENOL 650 MG PO (11:36)
--- NOTE | 2025-04-07 14:32 | W.PN.UPDATE ---
Update Note
Progress Note Update
60 yo WM s/p PVI and Aflutter ablation (same day). He denies cp, sob, damián diet, voiding, EKG SR, R fem site c/d/i no HT. He will resume Eliquis tonight and continue metoprolol. Activity restrictions reviewed. He will f/u [facility] [employer] [facility] in 4 weeks. He is for d/c
home after 3p if groin stable.
== END 2025-04-07 14:45 | disposition home or self-care (01) ==
LOC: CATH 05:55
PROVIDERS: ATTENDING PHYSICIAN Internal Medicine Cardiovascular Disease; FAMILY PHYSICIAN Family Medicine
DX: I48.0 Paroxysmal atrial fibrillation (principal); I48.92 Unspecified atrial flutter; I10 Essential (primary) hypertension; I47.10 Supraventricular tachycardia, unspecified; R07.89 Other chest pain; Z79.01 Long term (current) use of anticoagulants
CPT/HCPCS: C1733; C1894; C1730; C1766; C1892; C1759; C1769; 36415; 80053; 85025; 85347; 86850; 86900; 86901; 93005; 93655; 93656; 93657